=== PATIENT | female | born 1970 | race Caucasian/White ===

== ENCOUNTER 2024-12-22 10:11 | Outpatient (AMB) | payer OTHER, SELFPAY ==
[2024-12-22 10:14] VITALS: BP 112/72; PULSE 84; RESP 18; TEMP 36.3; O2SAT 96; BMI 35.1
--- NOTE | 2024-12-22 10:14 | A.OFFPC_ITS ---
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 Her PCP had retired Last visit: about 6 years Last PE: same Specialist: no OBGYN: will need a referral mammogram: We will order Colonoscopy: We will refer Past medical history: Medications: otc prilosec at times, Tylenol PM and gummies, melatonin and nothing is helping her to sleep Family HX: Problem: She has not have a period in over a year Put on weight probably about 40 lbs over the years She is not been sleeping, restless Heartburn every day for a year-she is taking prilosec otc that she has been taking inappropriately after she already started eating hands/fingers swell from time to time both knees hurts, mostly left knee concerns her, sometimes it swells ups left calf hurts from time to time when she walks for extended periods FMH: Mother had diabetes, htn, copd, dementia before passing at age 69 y/o from covid Father: She does know anything about her father Maternal aunt had breast cancer and had a mastectomy-reports the and so came back in her unaffected side Sister: Younger sister is mentally challenged, she is the sole caregiver, part of the reason she has been neglecting her health reports smoking about 4-5 cigarettes a day she has been smoking since she was a teenager Reports that she does not drink often Mostly a glass a wine, once in awhile a ethan [facility] Medical History (Updated 12/22/24 @ 21:11 by JAMIE Cordon) Heartburn Family History Mother Diabetes Hypertension COPD (chronic obstructive pulmonary disease) Dementia Maternal Aunt Breast cancer Other Mental health impairment Social History Household Members: Significant Other Both parents involved: No Caregiver staying overnight: No Housing: House Are you a primary customer care assistant to a significant other at home: No Do you presently have visiting nurse or other home services: No Alcohol intake: current Patient Tobacco Use Status: Former Tobacco user Tobacco use type: Cigarette Cigarettes Per Day: 4 e-Cigarette/Vaping Use: Never Used service: No Current occupational status: employed 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 1. Little interest or pleasure in doing things: not at all 2. Feeling down, depressed, or hopeless: not at all 3. Trouble falling or staying asleep, or sleeping too much: nearly every day 4. Feeling tired or having little energy: nearly every day 5. Poor appetite or overeating: nearly every day 6. Feeling bad about yourself - or that you are a failure or have let yourself or your family down: not at all 7. Trouble concentrating on things, such as reading the newspaper or watching television: not at all 8. Moving or speaking so slowly that other people could have noticed. Or the opposite - being so fidgety or restless that you have been moving around a lot more than usual: not at all 9. Thoughts that you would be better off or of hurting yourself in some way: not at all Total score: 9 Depression Screening Interpretation: Positive Depression Screening Done: Yes 67368 - PHQ-9 Billing: Yes Source: Developed by Drs. Yousuf Deleon, Marisela Romeo, Alex Faria and colleagues, with an educational edgard from [employer]. Thrive Questionnaire Date Thrive assessed: 12/22/24 I am a: Patient What is your living situation today?: I have a steady place to live Within the past 12 months, did the food you bought not last and you didn't have the money to get more?: Never true THRIVE Score: 0 AUDIT C Alcohol Use Questionnaire (AUDIT-C) 1. How often do you have a drink containing alcohol?: Monthly or less 2. How many drinks containing alcohol do you have on a typical day when you are drinking?: 1 or 2 3. How often do you have six or more drinks on one occasion?: Never Total Score: 1 KERA-7 AMB Questionnaire KERA-7 Date KERA - 7 assessed: 12/22/24 Feeling nervous, anxious, or on edge: 0 = Not at all Not being able to stop or control worryin = More than half the days Worrying too much about different things: 2 = More than half the days Trouble relaxin = Nearly every day Being so restless that it is hard to sit still: 3 = Nearly every day Becoming easily annoyed or irritable: 2 = More than half the days Feeling afraid as if something awful might happen: 2 = More than half the days Total KERA-7 score (0-4 normal; 5-9 mild; 10-14 moderate; 15-21 severe): 14 Source: Developed by Drs. Yousuf Deleon, Marisela Romeo, Alex Faria and colleagues, with an educational edgard from [employer]. KERA-7 Assessment Billing KERA-7 Assessment Tool: KERA-7 Assessment 90768 Review of Systems Const Reports difficulty sleeping, Denies headache(s) and Reports weight gain Eyes Denies loss of vision ENT Denies vertigo, Denies dizziness, Denies headache(s) and Denies sore throat Card Denies chest pain, Denies leg edema and Denies lightheadedness Resp Denies cough, Denies hemoptysis and Denies wheezing GI Denies abdominal pain, Denies melena, Denies constipation, Reports heartburn, Denies diarrhea and Denies vomiting Denies urinary frequency, Denies dysuria and Denies urinary urgency Musc Reports arthralgias (Bilateral knees, worse in the left), Reports joint swelling (Bilateral hands intermittently), Denies numbness and Denies tingling Neuro Denies Abnormal speech present, Denies behavioral changes, Denies vertigo, Denies dizziness, Denies headache(s), Denies loss of vision, Denies memory loss, Denies numbness and Denies tingling Psych Reports anxiety, Denies behavioral changes, Reports depression, Denies memory loss and Denies panic attacks Issa/Lymph Denies easy bleeding and Denies easy bruising Aller/Immun Denies wheezing Physical exam (Primary Care) Vital Signs: Last Vital Signs Temp 97.3 F 12/22/24 10:14 Pulse 84 12/22/24 10:14 Resp 18 12/22/24 10:14 BP 112/72 12/22/24 10:14 Pulse Ox 96 12/22/24 10:14 Oxygen Delivery Method Room Air 12/22/24 10:14 BMI result Body Mass Index 35.1 Tobacco/Smoking Status: Tobacco use Status Tobacco use date assessed 12/22/24 12/22/24 10:33 Patient Tobacco Use Status Former Tobacco user 12/22/24 10:33 Tobacco use type Cigarette 12/22/24 10:33 e-Cigarette/Vaping Use Never Used 12/22/24 10:33 PHQ-9: PHQ-9 Score PHQ-9: Total score 9 12/22/24 10:33 Depression Screening Interpretation: Positive Thrive Assessment: Date of Thrive Assessment Date Thrive assessed 12/22/24 12/22/24 10:14 Const General: healthy appearing, no acute distress, alert and awake Nutritional Appearance: well nourished Orientation/consciousness: oriented to person, oriented to place and oriented to time HENMT Ears: TM's normal bilaterally General nose exam: Normal nasal mucous membranes and turbinates present Eyes Conjunctivae: conjunctivae normal Sclerae: sclerae normal Pupils: Equal, round and reactive pupils present Neck Neck: Yes no lymphadenopathy and Yes no JVD Thyroid: Thyroid normal Carotids: no bruits Resp Effort & Inspection: normal respiratory effort and not tachypneic Auscultation: no crackles, no rales, no rhonchi and no wheezes Cardio Rate: regular rate Rhythm: regular rhythm Heart sounds: no murmurs and normal S1 and S2 GI Palpation (GI): Soft to palpation, nontender, no hepatomegaly and no splenomegaly Auscultation: normal bowel sounds General: Yes no CVA tenderness Back/Spine/Pelvis Back: no CVA tenderness Skin General skin exam: no rashes or lesions noted and dry skin Neuro General: oriented to person, oriented to place and oriented to time Cranial nerves: Yes Equal, round and reactive pupils present Speech: No Abnormal speech present Gait exam (Neuro): Normal gait present Motor exam (neuro): no tremor noted Extrem Right upper extremity: full ROM and Extremity exam: right hand Details: normal ROM of fingers; no swelling Left upper extremity: full ROM and hand Details: normal ROM of fingers; no swelling Right lower extremity: full ROM and knee Details: normal ROM; no tenderness and no swelling; no edema Left lower extremity: full ROM and knee Details: normal ROM; no tenderness and no swelling; no edema Psych Mental Status: mental status grossly normal Speech and movement: Normal speech and movement present Affect: normal affect Attitude: cooperative Thought process: Normal thought process present Coding Level of Care Code New Pt Level 4 (91325) Diagnoses Menopause Z78.0 Heartburn R12 Joint swelling M25.40 Chronic pain of left knee M25.562; G89.29 Chronicity: chronic Insomnia, unspecified type G47.00 Insomnia type: unspecified Muscle cramps R25.2 Additional Codes KERA-7 Assessment Billing - KERA-7 Assessment Tool: KERA-7 Assessment 21096 ([id number]) PHQ-9 - 68559 - PHQ-9 Billing: Yes ([id number]) Time Spent (min) 43 Assessment & Plan Assessment & Plan (1) Menopause: Code(s): Z78.0 - Asymptomatic menopausal state Category: Medical (2) Heartburn: Code(s): R12 - Heartburn Category: Medical (3) Joint swelling: Code(s): M25.40 - Effusion, unspecified joint Category: Medical (4) Left knee pain: Code(s): M25.562 - Pain in left knee Category: Medical Qualifiers: Chronicity: chronic Qualified Code(s): M25.562 - Pain in left knee; G89.29 - Other chronic pain (5) Insomnia: Code(s): G47.00 - Insomnia, unspecified Category: Medical Qualifiers: Insomnia type: unspecified Qualified Code(s): G47.00 - Insomnia, unspecified (6) Muscle cramps: Code(s): R25.2 - Cramp and spasm Category: Medical Plan The patient will undergo a series of preventative screenings, including a mammogram, Pap smear, and colonoscopy, to address overdue health maintenance needs. General laboratory tests will be conducted to evaluate cholesterol, glucose, kidney, and liver function, providing a comprehensive overview of her current health status. For her menopausal symptoms, lifestyle modifications such as diet and exercise will be encouraged to manage weight gain and improve sleep quality. An HUSEYIN test will be performed to rule out autoimmune conditions due to joint swelling, and an X-ray of the left knee will be ordered to assess for arthritis. The patient will be prescribed a higher dose of her current heartburn medication to manage her gastroesophageal reflux disease more effectively. Additionally, trazodone will be prescribed to aid with sleep disturbances. Patient was informed and verbally consented to the use of an ambient scribe for clinic note documentation during this visit. Orders: Orders Complete Blood Count Auto Diff Today G47.00 - Insomnia, unspecified, M25.40 - Effusion, unspecified joint, M25.562 - Pain in left knee, R12 - Heartburn, R25.2 - Cramp and spasm, Z00.00 - Encounter for general adult medical examination without abnormal findings Comprehensive [place]. Panel Fast Today G47.00 - Insomnia, unspecified, M25.40 - Effusion, unspecified joint, M25.562 - Pain in left knee, R12 - Heartburn, R25.2 - Cramp and spasm, Z00.00 - Encounter for general adult medical examination without abnormal findings UA CC w/rflx Micro + Cult Today G47.00 - Insomnia, unspecified, M25.40 - Effusion, unspecified joint, M25.562 - Pain in left knee, R12 - Heartburn, R25.2 - Cramp and spasm, Z00.00 - Encounter for general adult medical examination without abnormal findings Vitamin D 25-OH Total Today G47.00 - Insomnia, unspecified, M25.40 - Effusion, unspecified joint, M25.562 - Pain in left knee, R12 - Heartburn, R25.2 - Cramp and spasm, Z00.00 - Encounter for general adult medical examination without abnormal findings Erythrocyte Sedimentation Rate Today G47.00 - Insomnia, unspecified, M25.40 - Effusion, unspecified joint, M25.562 - Pain in left knee, R12 - Heartburn, R25.2 - Cramp and spasm, Z00.00 - Encounter for general adult medical examination without abnormal findings XR knee LT 3V Today M25.562 - Pain in left knee Magnesium Today R25.2 - Cramp and spasm MM tomosynthesis screening BI Today Z12.39 - Encounter for other screening for malignant neoplasm of breast Lipid Panel Today G47.00 - Insomnia, unspecified, M25.40 - Effusion, unspecified joint, M25.562 - Pain in left knee, R12 - Heartburn, R25.2 - Cramp and spasm, Z00.00 - Encounter for general adult medical examination without abnormal findings TSH reflex Free T4 Today G47.00 - Insomnia, unspecified, M25.40 - Effusion, unspecified joint, M25.562 - Pain in left knee, R12 - Heartburn, R25.2 - Cramp and spasm, Z00.00 - Encounter for general adult medical examination without abnormal findings Hemoglobin A1c Today G47.00 - Insomnia, unspecified, M25.40 - Effusion, unspecified joint, M25.562 - Pain in left knee, R12 - Heartburn, R25.2 - Cramp and spasm, Z00.00 - Encounter for general adult medical examination without abnormal findings HUSEYIN Reflex Titer and Pattern Today G47.00 - Insomnia, unspecified, M25.40 - Effusion, unspecified joint, M25.562 - Pain in left knee, R12 - Heartburn, R25.2 - Cramp and spasm, Z00.00 - Encounter for general adult medical examination without abnormal findings CRP High Sensitivity Today G47.00 - Insomnia, unspecified, M25.40 - Effusion, unspecified joint, M25.562 - Pain in left knee, R12 - Heartburn, R25.2 - Cramp and spasm, Z00.00 - Encounter for general adult medical examination without abnormal findings Cyclic Citrullinated Peptide Today G47.00 - Insomnia, unspecified, M25.40 - Effusion, unspecified joint, M25.562 - Pain in left knee, R12 - Heartburn, R25.2 - Cramp and spasm, Z00.00 - Encounter for general adult medical examination [facility] abnormal findings Referrals Gastroenterology Referral R12 - Heartburn, Z12.11 - Encounter for screening for malignant neoplasm of colon, Z12.12 - Encounter for screening for malignant neoplasm of rectum 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
== END 2024-12-22 11:17 | disposition home or self-care (01) ==
LOC: HO.HMCH 10:12
DX: Z78.0 Asymptomatic menopausal state (principal); R12 Heartburn; M25.40 Effusion, unspecified joint; M25.562 Pain in left knee; G89.29 Other chronic pain; G47.00 Insomnia, unspecified; R25.2 Cramp and spasm

== ENCOUNTER → 2024-12-22 10:11 | Outpatient (BNVA) | payer OTHER, SELFPAY | DX: R12 Heartburn (principal); M25.561 Pain in right knee; M25.562 Pain in left knee; M54.40 Lumbago with sciatica, unspecified side; G47.00 Insomnia, unspecified; R25.2 Cramp and spasm; F17.210 Nicotine dependence, cigarettes, uncomplicated; Z78.0 Asymptomatic menopausal state | CPT/HCPCS: 96127 ==

== ENCOUNTER 2025-01-26 11:32 | Outpatient (REF) | payer OTHER, SELFPAY ==
--- NOTE | ~2025-01-26 | XR_ITS ---
EXAMINATION: XR KNEE, LEFT CLINICAL INFORMATION: M25.562 - Pain in left knee COMPARISON: None available. TECHNIQUE: Four views of the left knee. FINDINGS: There is mild narrowing of the lateral joint space. There is mild medial subluxation of the femur. There are tricompartmental marginal osteophytes. There is a small volume of visible joint fluid. Faint chondrocalcinosis is visible in the medial and lateral joint lines. 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
[2025-01-26 12:24] LABS: Appearance Urine Clear; Glucose Urine UA Negative (Negative); PH 5.5 (5.0-9.0); Specific Gravity - Urine >= 1.030 (1.005-1.025); UMIC TRIGGER UACC YES
[2025-01-26 12:55] LABS: Hematocrit 39.2 % (37.0-47.0); Hemoglobin 13.7 g/dl (12.0-16.0); Imm Gran Abs Auto 0.03 X10*3/uL (0.00-0.03); Imm Gran Pct Auto 0.5 % (0.0-0.4); Lymphocytes Absolute Auto 2.2 X10*3/uL (1.2-4.9); MANUAL DIFF FLAG NO; Mean Corpuscular HGB Conc 34.9 g/dl (31.0-35.0); Mean Corpuscular Hemoglobin 31.2 pg (27.0-33.0); Mean Corpuscular Volume 89.3 fL (80.0-98.0); NRBC Abs Auto 0.000 X10*3/uL (0.0-0.012); NRBC Pct Auto 0.0 /100WBC (0.0-0.2); Platelet Count 220 X10*3/uL (160-400); Red Blood Count 4.39 X10*6/uL (4.20-5.50); White Blood Count 6.3 X10*3/uL (4.8-10.8)
[2025-01-26 12:58] LABS: Hemoglobin A1C 126.3771 umol/L; Total Hemoglobin (HGBA1C) 3645.1261 umol/L
[2025-01-26 13:26] LABS: Alanine Aminotransferase 32 U/L (0-31); Albumin Level 4.6 g/dL (3.5-5.0); Alkaline Phosphatase 67 U/L (39-117); Anion Gap 13 (12-20); Aspartate Amino Transferase 26 U/L (5-31); Blood Urea Nitrogen 16 mg/dL (9-16); Calcium 8.9 mg/dL (8.4-10.2); Carbon Dioxide 24 mmol/L (22-29); Chloride 111 mmol/L (96-108); Cholesterol 225 mg/dL (<200); Estimated Glomerular Filt Rate > 60; HDL Cholesterol 63 mg/dL (>40); Magnesium 1.9 mg/dL (1.6-2.6); Potassium 4.1 mmol/L (3.3-5.1); Sodium 144 mmol/L (135-145); Total Protein 6.8 g/dL (6.5-8.0); Triglycerides 208 mg/dL (<150)
[2025-01-29 10:18] LABS: Anti Nuclear Antibody Screen NEGATIVE (NEGATIVE)
== END 2025-01-26 11:33 | disposition home or self-care (01) ==
LOC: HO.XRAY 11:32
DX: Z00.00 Encounter for general adult medical examination without abnormal findings (principal); Z13.6 Encounter for screening for cardiovascular disorders; Z13.1 Encounter for screening for diabetes mellitus; M25.40 Effusion, unspecified joint; M25.562 Pain in left knee; R12 Heartburn; R25.2 Cramp and spasm; G47.00 Insomnia, unspecified
CPT/HCPCS: 36415; 73562; 80053; 80061; 81001; 82306; 83036; 83735; 84443; 85025; 85652; 86038; 86141; 86200

== ENCOUNTER → 2025-01-26 11:53 | Outpatient (BNV) | payer OTHER, SELFPAY | PROVIDERS: Visit Provider Radiology Diagnostic Radiology | DX: M17.12 Unilateral primary osteoarthritis, left knee (principal) | CPT/HCPCS: 73562 ==

== ENCOUNTER 2025-02-09 15:29 | Outpatient (REF) | payer OTHER, SELFPAY | END 2025-02-09 15:30 | disposition home or self-care (01) | LOC: HO.MAMMO 15:29 | DX: Z12.31 Encounter for screening mammogram for malignant neoplasm of breast (principal) | CPT/HCPCS: 77063; 77067 ==

== ENCOUNTER → 2025-02-09 16:15 | Outpatient (BNV) | payer OTHER, SELFPAY | PROVIDERS: Visit Provider Radiology Body Imaging | DX: Z12.31 Encounter for screening mammogram for malignant neoplasm of breast (principal) | CPT/HCPCS: 77063; 77067 ==

== ENCOUNTER 2025-02-10 15:40 | Outpatient (AMB) | payer OTHER, SELFPAY ==
--- NOTE | 2025-02-10 15:43 | MHC.PC.OV ---
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 Accompanied by: Self / Same As Patient Allergies No Known Allergies Allergy (Verified 02/10/25 16:18) Medication List - Last Reconciled 02/10/25 by JAMIE Cordon pantoprazole (Protonix) 40 mg PO DAILY trazodone 50 mg PO BEDTIME PRN Tobacco use date assessed: 02/10/25 Dental Screening Dental Screen Date: 02/10/25 Did you have a dental visit in the last 12 months?: No Did you have a dental problem in the last 6 months where you did not have access to dental care?: No Was dental information given to patient?: No HPI Annual Exam HPI Details Dentist: Up to date Eye: Up-to-date Snellen: Right: Left: Corrected vision: Reading glasses STI screening:n/a Colonoscopy: Awaiting appointment Pap Smer: Awaiting appointment Mammogram: Completed awaiting for radiology read PHQ-9: Flu: Up-to-date COVID:x3 Tdap: 2012-she will hold off for now Diet: Regular Exercise: Used to walk a lot, but needs fleets to start back The patient is a 54-year-old female presenting with hyperlipidemia, vitamin D deficiency, osteoarthritis, constipation, and menopausal symptoms. The patient's hyperlipidemia was identified through recent lab work, showing elevated triglycerides at 208 mg/dL and LDL cholesterol at 121 mg/dL. She has been advised to manage this condition through dietary modifications, particularly reducing processed foods and carbohydrates. Vitamin D deficiency was noted with a level of 21.9 ng/mL, and the patient has been recommended to take vitamin D supplements to improve her energy levels. The patient reports experiencing menopausal symptoms, including disrupted sleep patterns and fatigue, which she attributes to menopause. She has attempted using Trazodone for sleep, but it causes grogginess during the day. Osteoarthritis is present in the left knee, causing discomfort and impacting her mobility. The patient uses [id number]-[id number] pain relief and topical treatments like Biofreeze for symptom management. The patient experiences constipation, with bowel movements occurring once or twice a week, and occasional episodes of diarrhea. She has been advised to increase fiber intake and hydration to improve bowel regularity. [facility] Medical History Heartburn Family History Mother Diabetes Hypertension COPD (chronic obstructive pulmonary disease) Dementia Maternal Aunt Breast cancer Other Mental health impairment Social History Household Members: Significant Other Both parents involved: No Caregiver staying overnight: No Housing: House Are you a primary rn homecare to a significant other at home: No Do you presently have visiting nurse or other home services: No Alcohol intake: current Patient Tobacco Use Status: Former Tobacco user Tobacco use type: Cigarette Cigarettes Per Day: 4 e-Cigarette/Vaping Use: Never Used service: No Current occupational status: employed 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 Yousuf Deleon, Marisela Romeo, Alex Faria and colleagues, with an educational edgard from [employer]. Review of Systems Const Reports difficulty sleeping (Staying asleep), Denies headache(s) and Reports lethargy (At the end of the day) Eyes Denies loss of vision ENT Denies vertigo, Denies dizziness, Denies headache(s) and Denies sore throat Card Denies chest pain, Denies leg edema and Denies lightheadedness Resp Denies cough, Denies hemoptysis and Denies wheezing GI Denies abdominal pain, Denies melena, Denies constipation, Reports GI cramping (Intermittently associated with diarrhea), Reports diarrhea (Intermittently) and Denies vomiting Denies urinary frequency, Denies dysuria and Denies urinary urgency Musc Reports arthralgias (Left knee), Denies joint swelling, Denies numbness and Denies tingling Neuro Denies Abnormal speech present, Denies behavioral changes, Denies vertigo, Denies dizziness, Denies headache(s), Denies loss of vision, Denies memory loss, Denies numbness and Denies tingling Psych Denies anxiety, Denies behavioral changes, Denies depression, Denies memory loss and Denies panic attacks Issa/Lymph Denies easy bleeding and Denies easy bruising Aller/Immun Denies wheezing Physical exam (Primary Care) Vital Signs: Last Vital Signs Temp 97.1 F 02/10/25 16:04 Pulse 80 02/10/25 16:04 Resp 18 02/10/25 16:04 BP 90/60 02/10/25 16:04 Pulse Ox 96 02/10/25 16:04 Oxygen Delivery Method Room Air 02/10/25 16:04 BMI result Body Mass Index 35.3 Tobacco/Smoking Status: Tobacco use Status Tobacco use date assessed 02/10/25 02/10/25 16:09 Patient Tobacco Use Status Former Tobacco user 02/10/25 15:46 Tobacco use type Cigarette 02/10/25 15:46 e-Cigarette/Vaping Use Never Used 02/10/25 15:46 Thrive Assessment: Date of Thrive Assessment Date Thrive assessed 12/22/24 02/10/25 15:46 Const General: healthy appearing, no acute distress, alert and awake Nutritional Appearance: well nourished Orientation/consciousness: oriented to person, oriented to place and oriented to time HENMT Ears: TM's normal bilaterally General nose exam: Normal nasal mucous membranes and turbinates present Eyes Conjunctivae: conjunctivae normal Sclerae: sclerae normal Pupils: Equal, round and reactive pupils present Neck Neck: Yes no lymphadenopathy and Yes no JVD Thyroid: Thyroid normal Carotids: no bruits Resp Effort & Inspection: normal respiratory effort and not tachypneic Auscultation: no crackles, no rales, no rhonchi and no wheezes Cardio Rate: regular rate Rhythm: regular rhythm Heart sounds: no murmurs and normal S1 and S2 GI Palpation (GI): Soft to palpation, nontender, no hepatomegaly and no splenomegaly Auscultation: normal bowel sounds Skin General skin exam: no rashes or lesions noted and dry skin Neuro General: oriented to person, oriented to place and oriented to time Cranial nerves: Yes CN's II-XII intact bilaterally and Yes Equal, round and reactive pupils present Speech: No Abnormal speech present Gait exam (Neuro): Normal gait present Motor exam (neuro): 5/5 motor strength present throughout and no tremor noted Deep tendon reflexes (DTR's): Right triceps reflex intensity grade: 2+, Left triceps reflex intensity grade: 2+, Rt Biceps (C5, C6): 2+, Left biceps reflex intensity grade: 2+, Right brachioradialis reflex intensity grade: 2+, Left brachioradialis reflex intensity grade: 2+ and Right patellar reflex intensity grade: 2+ Extrem Right upper extremity: full ROM Left upper extremity: full ROM Right lower extremity: full ROM; no edema Left lower extremity: full ROM and knee Details: no tenderness and no swelling; no edema Psych Mental Status: mental status grossly normal Speech and movement: Normal speech and movement present Affect: normal affect Attitude: cooperative Thought process: Normal thought process present Results Reviewed Results Reviewed: Laboratory Tests 01/26/25 01/26/25 11:39 11:52 WBC 6.3 RBC 4.39 Hgb 13.7 Hct 39.2 MCV 89.3 MCH 31.2 MCHC 34.9 RDW 12.4 Plt Count 220 Sodium 144 Potassium 4.1 Chloride 111 H Carbon Dioxide 24 Anion Gap 13 BUN 16 Creatinine 0.76 Estimated GFR > 60 Fasting Glucose 98 Estimat Average Glucose 105 Hemoglobin A1c % 5.3 Calcium 8.9 Magnesium 1.9 Total Bilirubin 0.5 AST 26 ALT 32 H Alkaline Phosphatase 67 C-React Prot High Sens 0.9 Total Protein 6.8 Albumin 4.6 Triglycerides 208 H Cholesterol 225 H LDL Cholesterol, Calc 121 H HDL Cholesterol 63 25-OH Vitamin D Total 21.9 L TSH 0.67 Urine Color Dark Yellow Urine Appearance Clear Urine pH 5.5 Ur Specific [place] >= 1.030 H Urine Protein Trace Urine Glucose (UA) Negative Urine Ketones Negative Urine Blood Trace H Urine Nitrite Negative Ur Leukocyte Esterase Negative Urine RBC 6-10 H Urine WBC 0-5 Ur Squamous Epith Cells 6-10 Urine Bacteria None Seen Hyaline Casts 0-2 HUSEYIN Screen NEGATIVE Coding Level of Care Code Est Pt Prev Care 40-64y(84999) Diagnoses Annual physical exam Z00.00 Insomnia, unspecified type G47.00 Insomnia type: unspecified Chronic pain of left knee M25.562; G89.29 Chronicity: chronic Encounter for screening for malignant neoplasm of breast, unspecified screening modality Z12.39 Breast cancer screening modality: unspecified Cervical cancer screening Z12.4 Hematuria, unspecified type R31.9 Hematuria type: unspecified type Menopause Z78.0 Intermittent diarrhea R19.7 Encounter for colorectal cancer screening Z12.11; Z12.12 ALT (SGPT) level raised R74.01 Heartburn R12 Vitamin D deficiency E55.9 Mixed hyperlipidemia E78.2 Hyperlipidemia type: mixed hyperlipidemia Constipation, unspecified constipation type K59.00 Constipation type: unspecified constipation type Time Spent (min) 39 Assessment & Plan Assessment & Plan (1) Annual physical exam: Code(s): Z00.00 - Encounter for general adult medical examination without abnormal findings Category: Medical Plan: Preventative guidelines and recent labs reviewed with the patient (2) Insomnia: Code(s): G47.00 - Insomnia, unspecified Category: Medical Qualifiers: Insomnia type: unspecified Qualified Code(s): G47.00 - Insomnia, unspecified Plan: Patient reports falling asleep but waking up about 1 or 02:00 in the morning constantly. She attributed this to her menopause; per patient, this started after she went through menopause. Reinforced sleep hygiene, continue trazodone 50 mg at bedtime p.r.n. (3) Left knee pain: Code(s): M25.562 - Pain in left knee Category: Medical Qualifiers: Chronicity: chronic Qualified Code(s): M25.562 - Pain in left knee; G89.29 - Other chronic pain Plan: Left knee pain and intermittent edema. X-rayed completed showed tricompartmental osteoarthritis. The patient wants to continue conservative measures. She wants to hold off on PT were being referred to Orthopedics. (4) Breast cancer screening: Code(s): Z12.39 - Encounter for other screening for malignant neoplasm of breast Category: Medical Qualifiers: Breast cancer screening modality: unspecified Qualified Code(s): Z12.39 - Encounter for other screening for malignant neoplasm of breast Plan: Mammogram completed but has not been read as yet. (5) Cervical cancer screening: Code(s): Z12.4 - Encounter for screening for malignant neoplasm of cervix Category: Medical Plan: The patient was referred to [facility] [place] [facility] on her previous visit. Reports that she has an appointment in July 2025. (6) Hematuria: Code(s): R31.9 - Hematuria, unspecified Category: Medical Qualifiers: Hematuria type: unspecified type Qualified Code(s): R31.9 - Hematuria, unspecified Plan: The patient shows trace of blood in urine. We will repeat urinalysis and add a urine cytology to further evaluate (7) Menopause: Code(s): Z78.0 - Asymptomatic menopausal state Category: Medical Plan: lifestyle modifications such as diet and exercise will be encouraged to manage weight gain and improve sleep quality (8) Intermittent diarrhea: Code(s): R19.7 - Diarrhea, unspecified Category: Medical Plan: We will order stool culture for ova and parasite and leukocytes. Transglutaminase ab IgG ordered to further evaluate. Discussed FODMAP diet. (9) Encounter for colorectal cancer screening: Code(s): Z12.11 - Encounter for screening for malignant neoplasm of colon; Z12.12 - Encounter for screening for malignant neoplasm of rectum Category: Medical Plan: The patient was referred to GI for colonoscopy on her previous visit. She reports that she received a call from the office but she was too busy to make the appointment then and she is planning on calling them back to make an appointment. (10) ALT (SGPT) level raised: Code(s): R74.01 - Elevation of levels of liver transaminase levels Category: Medical Plan: ALT slightly elevated. Limit alcohol/Tylenol/fatty foods intake We will rechecked CMP in 4 months (11) Heartburn: Code(s): R12 - Heartburn Category: Medical Plan: Reinforced dietary restriction Continue pantoprazole 40 mg daily (12) Vitamin D deficiency: Code(s): E55.9 - Vitamin D deficiency, unspecified Category: Medical Plan: Encouraged vitamin D3 50 mcg OTC daily (13) HLD (hyperlipidemia): Code(s): E78.5 - Hyperlipidemia, unspecified Category: Medical Qualifiers: Hyperlipidemia type: mixed hyperlipidemia Qualified Code(s): E78.2 - Mixed hyperlipidemia Plan: The patient triglycerides and LDL are both slightly elevated Encouraged dietary/lifestyle modifications We will repeat lipid panel in 4 months (14) Constipation: Code(s): K59.00 - Constipation, unspecified Category: Medical Qualifiers: Constipation type: unspecified constipation type Qualified Code(s): K59.00 - Constipation, unspecified Plan: Reports that she may be goes 2 times a week. The patient is also having intermittent explosive diarrhea once in a while. Explained to the patient that this could be related to her constipation because she is not going often and is probably backed up. Encouraged the increased of dietary fiber and fluids. The patient is planning on purchasing Metamucil OTC. Orders: Orders UA CC w/rflx Micro + Cult Today R31.9 - Hematuria, unspecified Leukocytes Stool Qualitative Today R19.7 - Diarrhea, unspecified Lipid Panel 4 Months E55.9 - Vitamin D deficiency, unspecified, E78.5 - Hyperlipidemia, unspecified, R74.01 - Elevation of levels of liver transaminase levels Urine Cytology Today R31.9 - Hematuria, unspecified Ova and Parasite Today R19.7 - Diarrhea, unspecified Transglutaminase Ab IgG Today R19.7 - Diarrhea, unspecified Comprehensive [place]. Panel Fast 4 Months E55.9 - Vitamin D deficiency, unspecified, E78.5 - Hyperlipidemia, unspecified, R74.01 - Elevation of levels of liver transaminase levels Vitamin D 25-OH Total 4 Months E55.9 - Vitamin D deficiency, unspecified, E78.5 - Hyperlipidemia, unspecified, R74.01 - Elevation of levels of liver transaminase levels
[2025-02-10 16:04] VITALS: BP 90/60; PULSE 80; RESP 18; TEMP 36.2; O2SAT 96; BMI 35.3
== END 2025-02-10 16:58 | disposition home or self-care (01) ==
LOC: HO.HMCH 15:41
DX: Z00.00 Encounter for general adult medical examination without abnormal findings (principal); G47.00 Insomnia, unspecified; M25.562 Pain in left knee; G89.29 Other chronic pain; Z12.39 Encounter for other screening for malignant neoplasm of breast; Z12.4 Encounter for screening for malignant neoplasm of cervix; R31.9 Hematuria, unspecified; Z78.0 Asymptomatic menopausal state; R19.7 Diarrhea, unspecified; Z12.11 Encounter for screening for malignant neoplasm of colon; Z12.12 Encounter for screening for malignant neoplasm of rectum; R74.01 Elevation of levels of liver transaminase levels; R12 Heartburn; E55.9 Vitamin D deficiency, unspecified; E78.2 Mixed hyperlipidemia; K59.00 Constipation, unspecified

== ENCOUNTER 2025-02-11 15:40 | Outpatient (REF) | payer OTHER, SELFPAY ==
[2025-02-11 17:12] LABS: Appearance Urine Clear; Glucose Urine UA Negative (Negative); PH 6.0 (5.0-9.0); Specific Gravity - Urine 1.015 (1.005-1.025); UMIC TRIGGER UACC YES
[2025-02-11 17:46] LABS: Alanine Aminotransferase 35 U/L (0-31); Albumin Level 4.5 g/dL (3.5-5.0); Alkaline Phosphatase 76 U/L (39-117); Anion Gap 11 (12-20); Aspartate Amino Transferase 24 U/L (5-31); Blood Urea Nitrogen 19 mg/dL (9-16); Calcium 8.6 mg/dL (8.4-10.2); Carbon Dioxide 27 mmol/L (22-29); Chloride 104 mmol/L (96-108); Cholesterol 204 mg/dL (<200); Estimated Glomerular Filt Rate > 60; HDL Cholesterol 53 mg/dL (>40); Potassium 4.1 mmol/L (3.3-5.1); Sodium 138 mmol/L (135-145); Total Protein 6.8 g/dL (6.5-8.0); Triglycerides 319 mg/dL (<150)
[2025-02-15 14:59] LABS: Transglutaminase Ab IgG <1.0 U/mL
== END 2025-02-11 15:41 | disposition home or self-care (01) ==
LOC: HO.LAB 15:40
DX: R31.9 Hematuria, unspecified (principal); R19.7 Diarrhea, unspecified; E78.5 Hyperlipidemia, unspecified; E55.9 Vitamin D deficiency, unspecified; R74.01 Elevation of levels of liver transaminase levels
CPT/HCPCS: 36415; 80053; 80061; 81001; 82306; 86364; 88112

== ENCOUNTER 2025-03-12 09:39 | Outpatient (REF) | payer OTHER, SELFPAY ==
--- NOTE | ~2025-03-12 | US_ITS ---
EXAMINATION: US RETROPERITONEAL LIMITED (RENAL ONLY) CLINICAL INFORMATION: Hematuria. Flank pain. COMPARISON: None available. TECHNIQUE: Real-time ultrasound of the kidneys using a curvilinear transducer with grayscale and color Doppler technique. FINDINGS: RIGHT KIDNEY: 11 x 5 x 5 cm (SAG x AP x TRV). Volume: 146 cc. Normal echotexture. Renal cortical thickness is normal. No gross hydronephrosis. No solid or cystic lesion. There is a 6 mm hyperechoic structure in the lower pole. LEFT KIDNEY: 11 x 6 x 4 cm (SAG x AP x TRV). Volume: 145 cc. Normal echotexture. Renal cortical thickness is normal. No hydronephrosis. No solid or cystic lesion. Incidental finding: There are 2.5 and 1.7 cm anechoic lesions in the periphery of the liver without gross flow on color Doppler interrogation. There is coarse liver echotexture. US/US renal BI IMPRESSION: No hydronephrosis. 6 mm nonobstructing calculus, right kidney. 2.5 and 1.7 cm cystic lesions, liver and questionable and steatosis. Electronically signed by: Aleksandar Moore MD 03/12/2025 10:43 AM EDT
== END 2025-03-12 09:40 | disposition home or self-care (01) ==
LOC: HO.US 09:39
DX: R10.A0 Flank pain, unspecified side (principal); R31.9 Hematuria, unspecified
CPT/HCPCS: 76775

== ENCOUNTER → 2025-03-12 09:41 | Outpatient (BNV) | payer OTHER, SELFPAY | PROVIDERS: Visit Provider Radiology Diagnostic Radiology | DX: N20.0 Calculus of kidney (principal) | CPT/HCPCS: 76775 ==